=== PATIENT | female | born 1970 | race African-American/Black ===

== ENCOUNTER 2023-09-06 22:12 | Emergency (ER) | payer SELFPAY ==
[2023-09-06 22:18] VITALS: BP 190/100; PULSE 78; RESP 18; TEMP 37.3; O2SAT 98; BMI 37.6
--- NOTE | 2023-09-06 22:38 | PC.NURSE ---
HAD PACKING PLACED IN LEFT NARE 2 HOURS AGO IN [place]. NOW RIGHT NARE IS BLEEDING
--- NOTE | 2023-09-06 22:51 | ED.EPISTAXI1 ---
HPI - Epistaxis General Chief Complaint: Epistaxis Stated Complaint: Epitaxis Time Seen by Provider: 09/06/23 22:44 Source: patient Mode of arrival: Wheelchair Limitations: no limitations History of Present Illness HPI Narrative: was seen at another hospital earlier today for nose bleed. Rhino rocket placed left nostril. Patient states as she was being discharged she started to bleed from the right nostril. She left the other hopital and came here. Admits the bleeding is now slowing down. no headache or dizziness Related Data Home Medications Medication Instructions Recorded Confirmed carvedilol 3.125 mg tablet 3.125 mg PO BIDWM 09/06/23 09/06/23 hydrochlorothiazide 12.5 mg tablet 12.5 mg PO DAILY 09/06/23 09/06/23 losartan 50 mg tablet 50 mg PO BID 09/06/23 09/06/23 rosuvastatin 10 mg tablet 10 mg PO DAILY 09/06/23 09/06/23 tizanidine 4 mg tablet 4 mg PO Q12H PRN muscle spasticity 09/06/23 09/06/23 Allergies Allergy/AdvReac Type Severity Reaction Status Date / Time amlodipine [From [facility]] Allergy Severe Swelling Verified 09/06/23 22:18 of Lip/Tongue/Throat Review of Systems ROS Status of ROS 10 or more systems reviewed and unremarkable except as noted in history and below [facility] Social History Smoking status: Former smoker Exam Constitutional Vital Signs, click to edit/add: Last Vital Signs Temp 99.1 F 09/06/23 22:18 Pulse 72 09/07/23 00:37 Resp 16 09/07/23 00:37 BP 170/90 H 09/07/23 00:37 Pulse Ox 100 09/07/23 00:37 O2 Del Method Room Air 09/07/23 00:37 Common normals: no apparent distress, average body habitus, oriented x3, no limitations, healthy appearing, alert and well nourished [facility] Other: small amount of blood in right nostril but no active bleeding. small amount of blood at posterior pharynx. At first she was spitting out blood but the last couple of times has been clear Eye Common normals: EOMs intact bilaterally and conjunctivae normal Respiratory Common normals: normal respiratory effort and no use of accessory muscles Cardio Common normals: regular rate, regular rhythm, S1 normal heart sound and S2 normal heart sound Extremity Common normals: normal to inspection and full ROM Neuro Common normals: oriented x3, CN's II-XII intact bilaterally, moves all extremities and no focal motor deficits Psych Appearance: grossly normal Course Vital Signs Vital signs: Vital Signs Temperature 99.1 F 09/06/23 22:18 Pulse Rate 78 09/06/23 22:18 Respiratory Rate 18 09/06/23 22:18 Blood Pressure 190/100 H 09/06/23 22:18 Pulse Oximetry 98 09/06/23 22:18 Oxygen Delivery Method Room Air 09/06/23 22:18 Temperature 99.1 F 09/06/23 22:18 Pulse Rate 72 09/07/23 00:37 Respiratory Rate 16 09/07/23 00:37 Blood Pressure 170/90 H 09/07/23 00:37 Pulse Oximetry 100 09/07/23 00:37 Oxygen Delivery Method Room Air 09/07/23 00:37 MDM - Epistaxis MDM Narrative Medical decision making narrative: patient seen at another hospital and rhino rocket placed left nostril. Patient then complained of bleeding from right nostril and came here. right nostril inspected and has evidence of blood at the back of the nasal canal but no active bleed. Patient BP also elevated. Admits to poor compliance with her BP medication. BP treated in the department. No additional treatment of her nose bleed and it eventually stop bleeding. Patient discharged home and advised to take her BP medication once home. She is advised to have nasal packing removed as previously instructed at her prior hospital Discharge Plan Discharge Chief Complaint: Epistaxis Clinical Impression: Epistaxis, Hypertension Patient Disposition: Home, Self-Care Prescriptions / Home Meds: No Action losartan 50 mg tablet 50 mg PO BID tizanidine 4 mg tablet 4 mg PO Q12H PRN (Reason: muscle spasticity) carvedilol 3.125 mg tablet 3.125 mg PO BIDWM rosuvastatin 10 mg tablet 10 mg PO DAILY hydrochlorothiazide 12.5 mg tablet 12.5 mg PO DAILY Instructions: Nosebleed (ED), Hypertension (ED) Additional Instructions: take your usual blood pressure medication when you get home have nasal packing removed in a couple of days Stand Alone Forms: Portal Instructions Referrals: [facility] [Primary Care Provider] - 1 week
[2023-09-06 23:34] VITALS: BP 200/118; PULSE 67; RESP 18; O2SAT 98
[2023-09-06 23:41] VITALS: BP 200/118
[2023-09-06] MEDS: CLONIDINE HCL 0.1 MG TABLET 0.2 MG PO (23:41)
--- NOTE | 2023-09-07 00:36 | PC.NURSE ---
RARE BLEEDING ON TISSUE NOTED FROM RIGHT NARE.
[2023-09-07 00:37] VITALS: BP 170/90; PULSE 72; RESP 16; O2SAT 100
== END 2023-09-07 00:55 | disposition home or self-care (01) ==
PROVIDERS: Emergency Provider Internal Medicine
DX: R04.0 Epistaxis (principal); I10 Essential (primary) hypertension; Z79.899 Other long term (current) drug therapy; Z87.891 Personal history of nicotine dependence
CPT/HCPCS: 99283